=== PATIENT | female | born 1960 | race Caucasian/White ===

== ENCOUNTER → 2017-11-19 | Outpatient (CLI) | payer BC ==
[~2017-11-19] MED LIST: AMLODIPINE BESY10 MG PO; AMOX TR-K CLV1 EAC4 PO; ASPIR-LOW81 MG PO; ATARAX,VISTARIL50 MG PO; BACLOFEN10 MG PO; BUSPAR15 MG PO; CLARITIN,ALAVAR10 MG PO; CYCLOBENZAPRINE10 MG PO; DIAZEPAM2 MG PO; DIAZEPAM5 MG PO; ERGOCALCIF50000 UNIT PO; FLEXERIL10 MG PO; FLUOXETINE HCL10 M1 PO; HYDROCHLOROTH12.5 MG PO; HYDROCHLOROTHIA25 MG PO; HYDROCODON-ACE1 EAC7 PO; IBUPROFEN200 M1 PO; INDERAL40 MG PO; KEFLEX500 MG PO; LIORESAL10 MG PO; LISINOPRIL40 MG PO; LYRICA150 MG PO; LYRICA200 MG PO; MELOXICAM15 MG PO; METHIMAZOLE5 MG PO; MOBIC15 MG PO; MOTRIN800 MG PO; NEURONTIN600 MG PO; NORVASC5 MG PO; OMEPRAZOLE40 M1 PO; PERCOCET 7.51 TABLET PO; PREVACID30 MG PO; PRILOSEC40 MG PO; PROPRANOLOL HC160 MG PO; PROZAC20 MG PO; PROZAC40 MG PO; TIZANIDINE HCL2 M1 PO; TRAMADOL HCL50 MG PO; ULTRAM50 MG PO; VALIUM2 MG PO; VICODIN,LORT1 TABLET PO; VITAMIN D250000 UNIT PO; ZESTRIL40 MG PO; ZITHROMAX Z-PA250 MG PO
== END | disposition home or self-care (01) ==
LOC: CDC 08:50
DX: Z01.810 Encounter for preprocedural cardiovascular examination (principal); M48.062 Spinal stenosis, lumbar region with neurogenic claudication
CPT/HCPCS: 93000

== ENCOUNTER 2018-05-18 16:45 | Emergency (ER) | payer OTHER ==
[~2018-05-18] VITALS: Ht 170.2 cm; Wt 89.0 kg
[2018-05-18 19:24] VITALS: BP 142/97
== END 2018-05-18 19:24 | disposition home or self-care (01) ==
LOC: EME 16:45
DX: S00.412A Abrasion of left ear, initial encounter (principal); M54.2 Cervicalgia; V59.40XA Driver of pick-up truck or van injured in collision with unspecified motor vehicles in traffic accident, initial encounter; Y92.410 Unspecified street and highway as the place of occurrence of the external cause; Z79.82 Long term (current) use of aspirin; I10 Essential (primary) hypertension; F41.9 Anxiety disorder, unspecified; K21.9 Gastro-esophageal reflux disease without esophagitis; M79.7 Fibromyalgia; Z87.891 Personal history of nicotine dependence
CPT/HCPCS: 70450; 72125; 99281; 99283